=== PATIENT | female | born 2000 | race Caucasian/White ===

== ENCOUNTER 2021-02-17 22:24 | Emergency (ER) | payer BC ==
[~2021-02-17] VITALS: Ht 157.5 cm; Wt 79.5 kg
[2021-02-17] MEDS ORDERED: predniSONE 10 MG TABLET PO ONE (23:30)
[2021-02-17] MEDS ORDERED: CETIRIZINE HCL 10 MG TABLET. PO ONE (23:30)
--- NOTE | 2021-02-17 23:40 | PHYS DOC ---
Past Medical History Past Surgical History: No Surgical History Smoking Status: Never Smoker Alcohol Use: Rarely General Adult EDM: Chief Complaint: SHORTNESS OF BREATH HPI: HPI: Patient is a 21 year old female who presents with 1 week of nasal congestion, ear popping, ear pain, headache, shortness of breath, congestion, cough and burning in her throat. She denies fever. She has not been vaccinated for Covid. She is an asthmatic but has been out of her inhaler. Patient also has a history of cholecystectomy. Rates her overall discomfort at a 7 out of 10. States has been taking Mucinex and Robitussin. Review of Systems: Review of Systems: Constitutional: Denies fever or chills. [] Eyes: Denies change in visual acuity. [] HENT: + nasal congestion or +sore throat. [] Respiratory: + cough or +shortness of breath. [] Cardiovascular: Denies chest pain or edema. [] GI: Denies abdominal pain, nausea, vomiting, bloody stools or diarrhea. + Lack of appetite [] : Denies dysuria. [] Musculoskeletal: Denies back pain or joint pain. [] Integument: Denies rash. [] Neurologic: + headache, denies focal weakness or sensory changes. [] Endocrine: Denies polyuria or polydipsia. [] Lymphatic: Denies swollen glands. [] Psychiatric: Denies depression or anxiety. [] Heart Score: C/O Chest Pain: No Current Medications: Current Medications Medications (Trade) Dose Ordered Sig/Sandrine Start Time Stop Time Status Last Admin Dose Admin Cetirizine HCl (ZyrTEC) 10 mg 1X ONCE 02/17/21 23:30 02/17/21 23:31 UNV Prednisone (Prednisone) 50 mg 1X ONCE 02/17/21 23:30 02/17/21 23:31 UNV Allergies: Allergies: Allergies Coded Allergies Type Severity Reaction Last Updated Verified No Known Drug Allergies 02/17/21 No Physical Exam: PE: Constitutional: Well developed, well nourished, no acute distress, non-toxic appearance. [] HENT: Normocephalic, atraumatic, bilateral external ears normal, oropharynx moist, no oral exudates, nose normal. [] Eyes: PERRLA, EOMI, conjunctiva normal, no discharge. [] Neck: Normal range of motion, no tenderness, supple, no stridor. [] Cardiovascular:Heart rate regular rhythm, no murmur [] Lungs & Thorax: Bilateral upper breath sounds clear and lower diminished to auscultation [] Abdomen: Bowel sounds normal, soft, no tenderness, no masses, no pulsatile masses. [] Skin: Warm, dry, no erythema, no rash. [] Back: No tenderness, no CVA tenderness. [] Extremities: No tenderness, no cyanosis, no clubbing, ROM intact, no edema. [] Neurologic: Alert and oriented X 3, normal motor function, normal sensory function, no focal deficits noted. [] Psychologic: Affect normal, judgement normal, mood normal. [] Current Patient Data: Vital Signs: Vital Signs Date Time Temp Pulse Resp B/P (MAP) Pulse Ox O2 Delivery O2 Flow Rate FiO2 02/17/21 23:10 98.5 96 18 125/81 (96) 98 98.5 EKG: EKG: [] Radiology/Procedures: Radiology/Procedures: [] Impression: [facility] [address] [place] [address] IMAGING REPORT Signed PATIENT: ERNESTO PANDEY ACCOUNT: [id number] : 2000 LOCATION: ER AGE: 21 SEX: F EXAM STATUS: REG ER ORD. PHYSICIAN: MARIA T GERBER APRN REASON: cough PROCEDURE: PORTABLE CHEST 1V XR CHEST 1V 02/17/2021 12:16 AM INDICATION: Cough COMPARISON: None available TECHNIQUE: Portable frontal view of the chest is provided. FINDINGS: The cardiomediastinal silhouette is within normal limits. Lungs are clear. There are no significant pleural effusions. There is no pulmonary vascular congestion. No pneumothorax. No suspicious osseous abnormality. IMPRESSION: There is no acute cardiopulmonary process. Electronically signed by: Allen Morris MD (02/18/2021 12:43 AM) [facility] DICTATED and SIGNED BY: ALLEN MORRIS MD DATE: 02/18/21 [id number] Course & Med Decision Making: Course & Med Decision Making Pertinent Labs and Imaging studies reviewed. (See chart for details) COVID-19 CRITERIA: The patient was evaluated during the global COVID-19 pandemic, and that diagnosis was suspected/considered upon their initial presentation. Their evaluation, treatment and testing was consistent with current guidelines for patients who present with complaints or symptoms that may be related to COVID-19. See HPI. Alert and oriented x4. Ambulatory steady gait. Skin pink warm and dry. Speaks in full clear sentences. Throat is reddened but there is no exudates or swelling. Lungs are clear in upper and lower are diminished. Mucous membranes moist. Bilateral tympanic's are intact but red. Maxillary sinus pressure with palpation. Giving patient a dose of prednisone p.o., albuterol breathing treatment. She will be sent home with a prescription for inhaler and a Medrol Dosepak and azithromycin. [] Jamie Disclaimer: Jamie Disclaimer: This electronic medical record was generated, in whole or in part, using a voice recognition dictation system. Departure Departure Impression: Primary Impression: Respiratory infection Disposition: HOME / SELF CARE / HOMELESS Condition: STABLE Referrals: UNKNOWN PCP NAME (PCP) Patient Instructions: Upper Respiratory Infection, Adult Additional Instructions: Follow up with primary care provider. Take medication as prescribed and with food. If your symptoms worsen you can was return to the emergency room. Drink plenty of fluids stay hydrated. Scripts Albuterol Sulfate (PROAIR HFA INHALER) 8.5 Gm Hfa.aer.ad 1 PUFF INH PRN Q6HRS PRN for SHORTNESS OF BREATH, #1 EACH 0 Refills Prov: MARIA T GERBER APRN 02/18/21 Methylprednisolone (MEDROL) 4 Mg Tab.ds.pk 1 PKG PO UD, #1 PKG Prov: MARIA T GERBER APRN 02/18/21 Azithromycin (AZITHROMYCIN TABLET) 250 Mg Tablet 1 PKG PO UD for 5 Days, #6 TAB 0 Refills 2 the first day followed by 1 for days 2-5 Prov: MARIA T GERBER APRN 02/18/21 MARIA T GERBER APRN Feb 17, 2021 23:40
[2021-02-17] MEDS ORDERED: ALBUTEROL SULFATE 2.5 MG/3 ML NEBU. NEB ONE (23:45)
--- NOTE | 2021-02-18 00:46 | RAD ---
XR CHEST 1V 02/17/2021 12:16 AM INDICATION: Cough COMPARISON: None available TECHNIQUE: Portable frontal view of the chest is provided. FINDINGS: The cardiomediastinal silhouette is within normal limits. Lungs are clear. There are no significant pleural effusions. There is no pulmonary vascular congestion. No pneumothora x. No suspicious osseous abnormality. IMPRESSION: There is no acute cardiopulmonary process. Electronically signed by: Sheila Morris MD (02/18/2021 12:43 AM) [facility]
[2021-02-18] MEDS ORDERED: METH4TAB2 PO (00:51)
[2021-02-18] MEDS ORDERED: AZIT250T6 PO (00:51)
[2021-02-18] MEDS ORDERED: ALBU2.5V8 INH (00:51)
[2021-02-18 01:00] VITALS: BP 116/78
--- NOTE | 2021-02-18 16:33 | NUR ---
IP: Attempted to contact pt concerning covid results. Phone number provided is not in service.
== END 2021-02-18 01:27 | disposition home or self-care (01) ==
LOC: ER 22:24
DX: J98.8 Other specified respiratory disorders (principal); Z20.822 Contact with and (suspected) exposure to COVID-19
CPT/HCPCS: 71045; 87426; 94640; 99284; J7512; U0003; U0005; 99285-25